=== PATIENT | female | born 1945 | race Caucasian/White ===

== ENCOUNTER → 2017-07-12 | Outpatient (CLI) | payer MEDICARE ==
--- NOTE | 2017-07-12 13:15 | RADIOLOGY REPORT (SQ) ---
EXAM DESCRIPTION: KNEE RIGHT 3 VIEWS COMPLETED DATE/TIME: 07/12/2017 10:29 am REASON FOR STUDY: PAIN IN RIGHT KNEE (M25.561) M25.561 PAIN IN RIGHT KNEE COMPARISON: 05/07/2008 NUMBER OF VIEWS: Three views. TECHNIQUE: AP, lateral, and sunrise patella radiographic images acquired of the right knee. LIMITATIONS: None. FINDINGS: MINERALIZATION: Normal. BONES: No acute fracture or dislocation. No worrisome bone lesions. No significant osteophytes. JOINT: No effusion. Mild degenerative narrowing of the patellofemoral joint. Stable mild degenerati ve compromise medial joint compartment. OTHER: No other significant finding. IMPRESSION: Mild degenerative compromise of the medial joint compartment unchanged since the previou s study. Mild degenerative narrowing of the patellofemoral joint. TECHNICAL DOCUMENTATION: JOB ID: [id number] [employer]- All Rights Reserved
== END ==
LOC: RAD 09:52
PROVIDERS: ATTEND Pain Medicine Interventional Pain Medicine
DX: M25.561 Pain in right knee (principal); M17.11 Unilateral primary osteoarthritis, right knee

== ENCOUNTER → 2017-10-13 | Outpatient (CLI) | payer MEDICARE ==
--- NOTE | 2017-10-13 13:04 | RADIOLOGY REPORT (SQ) ---
EXAM DESCRIPTION: KNEE RIGHT 3 VIEWS COMPLETED DATE/TIME: 10/13/2017 10:23 am REASON FOR STUDY: PAIN IN RIGHT KNEE AFTER FALL (M25.561) M25.561 PAIN IN RIGHT KNEE COMPARISON: None. NUMBER OF VIEWS: Three views. TECHNIQUE: AP, lateral, and sunrise patella radiographic images acquired of the right knee. LIMITATIONS: None. FINDINGS: MINERALIZATION: Normal. BONES: No acute fracture or dislocation. No worrisome bone lesions. JOINT: There is a tiny posterosuperior patellar spur. SOFT TISSUES: No soft tissue swelling. No radio-opaque foreign body. OTHER: No other significant finding. IMPRESSION: Minimal patellofemoral degenerative joint changes. No acute abnormality. TECHNICAL DOCUMENTATION: JOB ID: [id number] [employer]- All Rights Reserved Reading location - IP/workstation name: [email or web address]
== END ==
LOC: RAD 09:51
PROVIDERS: ATTEND Physician Assistant
DX: M25.561 Pain in right knee (principal)

== ENCOUNTER → 2017-12-06 | Outpatient (CLI) | payer MEDICARE ==
--- NOTE | 2017-12-06 17:28 | RADIOLOGY REPORT (SQ) ---
EXAM DESCRIPTION: MRI LUMBAR SPINE WITHOUT COMPLETED DATE/TIME: 12/06/2017 5:02 pm REASON FOR STUDY: SPINAL STENOSIS;SCOLIOSIS M48.00 SPINAL STENOSIS, SITE UNSPECIFIED M41.9 SCOLIOS IS, UNSPECIFIED COMPARISON: 2012. TECHNIQUE: Sagittal and Axial imaging includes T1, T2, STIR and gradient echo sequences. Coronal T2/ HASTE imaging. LIMITATIONS: None. FINDINGS: VISUALIZED UPPER ABDOMEN: Limited evaluation. No acute or suspicious findings suggested. SEGMENTATION: No transitional anatomy. The lowest well-developed disc space is labeled L5-S1. ALIGNMENT: Convex left scoliotic curve. Mild grade 1 listhesis at L4-5 and possibly L5-S1. VERTEBRAE: Intact. BONE MARROW: Normal in the lumbar spine. DISC SIGNAL: Diminished disc signal and height, most notable at L2-3. POSTERIOR ELEMENTS: Lower lumbar postoperative changes. Facet arthropathy with associated degenerat ashlee overgrowth particularly at L3-4. HARDWARE: Dorsal rods and screws span L4-5. CORD AND CONUS: Normal in size and signal intensity. Conus at the appropriate level. SOFT TISSUES: No aortic aneurysm seen. No bulky retroperitoneal adenopathy or mass. No paraspinal mas s or fluid. L1-L2: No significant spinal stenosis or exit foraminal stenosis. L2-L3: Mild disc and facet disease. Mild central and foraminal encroachment. L3-L4: Disc height loss with central to right paracentral focal disc hernia. This appears to extend laterally on the right. There is exuberant posterior element overgrowth. Marked central stenosis. Marked right foraminal stenosis. Moderate left foraminal narrowing. L4-L5: Operative level. No gross stenosis. L5-S1: No gross stenosis. LOWER THORACIC: Incompletely imaged. No stenosis seen. SACRUM: Abnormal signal along the left SI joint. This includes what appears to be mild edema. This may simply relate to asymmetric arthropathy, however unilateral sacral fracture is in the differentia l. This area is incompletely assessed. Further sacral MR imaging can be performed if warranted. Co rrelation would also need to be performed with SI joint radiographs. OTHER: No other significant findings. IMPRESSION: 1. Lumbar spondylosis and postoperative changes. Spinal stenosis at L3-4 is probably pr ogressive over the past 5 years, marked. 2. Left SI joint region pathology as above. Unclear if the re is fracture or simply arthropathy here. Further correlation with radiographs and sacral MRI may b e warranted. TECHNICAL DOCUMENTATION: JOB ID: [id number] [facility]- All Rights Reserved Reading location - IP/workstation name: [email or web address]
--- NOTE | 2017-12-07 09:30 | RADIOLOGY REPORT (SQ) ---
EXAM DESCRIPTION: MRI CERVICAL SPINE WITHOUT COMPLETED DATE/TIME: 12/06/2017 5:02 pm REASON FOR STUDY: SPINAL STENOSIS;SCOLIOSIS M48.00 SPINAL STENOSIS, SITE UNSPECIFIED M41.9 SCOLIOS IS, UNSPECIFIED COMPARISON: 2016 radiographs. TECHNIQUE: Sagittal and Axial imaging includes T1, T2, STIR and gradient echo sequences. LIMITATIONS: Limiting postoperative artifact. Some of the sequences are limited by motion. FINDINGS: ALIGNMENT: Grossly normal. BONE MARROW: Limiting motion artifact. Mild endplate related edema at the disc levels immediately ab ove and below surgery. DISCS: Obscured C4-5, C5-6 discs. At C3-4 and C6-7 discs also partially obscured by postoperative ar tifact. HARDWARE: Anterior fusion spanning C4 through C6. CORD AND BASE OF BRAIN: Motion limits assessment. Cord signal looks relatively normal. Skull base u nremarkable as visualized. SOFT TISSUES: No soft tissue masses. C1-C2: No significant spinal stenosis. C2-C3: No significant spinal stenosis or exit foraminal stenosis. C3-C4: Disc osteophyte complex appears to mildly flatten the cord. At least moderate right foraminal stenosis. Suspect marked left foraminal narrowing. C4-C5: Marked left foraminal stenosis. C5-C6: At least moderate foraminal stenosis. C6-C7: Bilateral foraminal stenosis. Mild central narrowing. C7-T1: No significant spinal stenosis or exit foraminal stenosis. UPPER THORACIC: Incompletely imaged. No significant spinal stenosis or exit foraminal stenosis. OTHER: No other significant finding. IMPRESSION: 1. Limited study due to motion and postoperative artifact. 2. Mild cord impingement is suggested at C3-4, the level above spinal surgery. TECHNICAL DOCUMENTATION: JOB ID: [id number] [employer]- All Rights Reserved Reading location - IP/workstation name: [email or web address]
== END ==
LOC: RAD 14:57
PROVIDERS: ATTEND Student in an Organized Health Care Education/Training Program
DX: M48.00 Spinal stenosis, site unspecified (principal); M41.9 Scoliosis, unspecified; R53.1 Weakness
CPT/HCPCS: 72141; 72148

== ENCOUNTER → 2018-01-10 | Outpatient (CLI) | payer MEDICARE ==
--- NOTE | 2018-01-10 11:32 | RADIOLOGY REPORT (SQ) ---
EXAM DESCRIPTION: MRI PELVIS WITHOUT COMPLETED DATE/TIME: 01/10/2018 10:10 am REASON FOR STUDY: ABN MRI COMPARISON: MRI lumbar spine 11/26/2017, 01/24/2013 MRI bony pelvis 08/18/2009, 05/19/2009 CT pelvis 05/07/2009 TECHNIQUE: Multiplanar multisequence imaging performed without contrast including axial, sagittal an d coronal T2, axial T1, sagittal inversion recovery. LIMITATIONS: None. FINDINGS: BLADDER AND URETHRA: Not entirely included in the field of view. Visualized bladder unrem arkable. PELVIC SOFT TISSUES: Post hysterectomy. No free pelvic fluid. No adenopathy FREE FLUID: None. PELVIC SKELETAL STRUCTURES: An old healed right sacral insufficiency fracture is present. This was a cute in 2009. Old bone harvest defect in the posterior right iliac crest related to a remote prior l umbar fusion. At the right SI joint inferiorly, there is joint space narrowing and bony spurring with adjacent reac tive marrow edema best shown on coronal image 15. On the left side, there is a band of bone marrow edema along the left sacral ala just medial to the S I joint worrisome for an acute or subacute nondisplaced sacral insufficiency fracture. This is best shown on coronal images 8 through 12 and axial images 8-12. At the left SI joint, there is fluid in the joint space with dense bony sclerosis of the adjacent sac rum and innominate bone likely reflecting chronic osteoarthritis. Lower lumbar fusion hardware. Bulky facet hypertrophy left greater than right at L5-S1. Mild bilate ral foraminal narrowing at L5-S1. EXTRA PELVIS SOFT TISSUES: No masses. OTHER: No other significant finding. IMPRESSION: Left acute or subacute nondisplaced sacral insufficiency fracture Arthritis at both SI joints TECHNICAL DOCUMENTATION: JOB ID: [id number] [employer]- All Rights Reserved Reading location - IP/workstation name: [email or web address]
== END ==
LOC: RAD 09:44
PROVIDERS: ATTEND Student in an Organized Health Care Education/Training Program
DX: M48.00 Spinal stenosis, site unspecified (principal)
CPT/HCPCS: 72195

== ENCOUNTER 2018-02-28 08:00 | Day surgery (SDC) | payer MEDICARE ==
[2018-02-28 09:00] LABS: INTERNATIONAL RATION (INR) 0.96; PROTHROMBIN TIME 13.3 SEC (11.4-15.4)
[2018-02-28 09:01] LABS: PARTIAL THROMBOPLASTIN TIME 27.2 SEC (23.5-35.8)
--- NOTE | 2018-02-28 12:57 | RADIOLOGY REPORT (SQ) ---
EXAM DESCRIPTION: CT CERVICAL SPINE WITH COMPLETED DATE/TIME: 02/28/2018 11:21 am REASON FOR STUDY: LUMBAGO, CERVICALGIA M54.2 CERVICALGIA Z79.01 [facility] (CURRENT) USE OF ANTICOA GULANTS COMPARISON: None. TECHNIQUE: After performing cervical myelogram, axial images were acquired through the cervical spin e without intravenous contrast. Images reviewed with lung, soft tissue and bone windows. Reconstruc gurpreet coronal and sagittal MPR images reviewed. Images stored on PACS. All CT scanners at this facility use dose modulation, iterative reconstruction, and/or weight based d osing when appropriate to reduce radiation dose to as low as reasonably achievable (ALARA). [facility]: Dose Right [facility]: CareDose [facility]: Dose Right [facility]: Teradose 4D [facility]: Smart [place] 100e RADIATION DOSE: CT Rad equipment meets quality standard of care and radiation dose reduction techniq ues were employed. CTDIvol: 23.5 mGy. DLP: 538 mGy-cm. mGy. LIMITATIONS: None. FINDINGS: ALIGNMENT: Anatomic. MINERALIZATION: Normal. VERTEBRAL BODIES: No fractures or dislocation. Anterior fusion with hardware at C4-C5 and C5-C6. DISCS: C1-C2: No significant spinal stenosis or exit foraminal stenosis. C2-C3: No significant spinal stenosis or exit foraminal stenosis. C3-C4: Disc space narrowing with prominent anterior and posterior osteophytes. This results in spina l stenosis, particularly on the left side of the spinal canal with impingement of the cervical cord. There is also uncovertebral spurring and facet arthropathy with left exit foraminal stenosis. C4-C5: No significant spinal stenosis. Mild bilateral exit foraminal stenosis. C5-C6: No significant spinal stenosis. Bilateral exit foraminal stenosis with severe right exit fora hubert stenosis. C6-C7: Mild posterior disc and osteophyte with mild spinal stenosis. C7-T1: No significant spinal stenosis or exit foraminal stenosis. FACETS, LATERAL MASSES, POSTERIOR ELEMENTS: No fractures. No dislocation. No acute findings. VISUALIZED RIBS: No fractures. LUNG APICES AND SOFT TISSUES: No significant or acute findings. OTHER: No other significant finding. IMPRESSION: 1. PROMINENT ANTERIOR AND POSTERIOR OSTEOPHYTES AT C3-C4 WITH LEFT-SIDED SPINAL STENOSIS AND IMPINGEM ENT OF THE CERVICAL CORD. THERE IS ALSO LEFT EXIT FORAMINAL STENOSIS. 2. ANTERIOR FUSION AT C4-C5 AND C5-C6. THERE IS NO SIGNIFICANT SPINAL STENOSIS AT THESE LEVELS. THE RE IS EXIT FORAMINAL STENOSIS WITH MOST PRONOUNCED FINDING ON THE RIGHT SIDE AT C5-C6 WITH SEVERE RIG HT EXIT FORAMINAL STENOSIS. 3. MILD POSTERIOR DISC AND OSTEOPHYTE AT C6-C7 WITH MILD SPINAL STENOSIS. COMMENT: Patient medication list reviewed: Yes- Quality ID# [id number]:Eligible professional attests to doc umenting in the medical record they obtained, updated, or reviewed the patient's current medications. TECHNICAL DOCUMENTATION: JOB ID: [id number] Quality ID # [id number]: Final reports with documentation of one or more dose reduction techniques (e.g., Au tomated exposure control, adjustment of the mA and/or kV according to patient size, use of iterative reconstruction technique) 2010 [employer]- All Rights Reserved Reading location - IP/workstation name: [email or web address]
--- NOTE | 2018-02-28 13:05 | RADIOLOGY REPORT (SQ) ---
EXAM DESCRIPTION: CT LUMBAR SPINE WITH COMPLETED DATE/TIME: 02/28/2018 11:21 am REASON FOR STUDY: LUMBAGO, CERVICALGIA M54.2 CERVICALGIA Z79.01 [employer] (CURRENT) USE OF ANTICOA GULANTS COMPARISON: None. TECHNIQUE: After performing lumbar myelogram, axial images were acquired through the lumbar spine wi thout intravenous contrast. Images reviewed with lung, soft tissue and bone windows. Reconstructed coronal and sagittal MPR images reviewed. All images stored on PACS. All CT scanners at this facility use dose modulation, iterative reconstruction, and/or weight based d osing when appropriate to reduce radiation dose to as low as reasonably achievable (ALARA). [facility]: Dose Right [facility]: CareDose [facility]: Dose Right [facility]: Teradose 4D [facility]: Cardiio RADIATION DOSE: CT Rad equipment meets quality standard of care and radiation dose reduction techniq ues were employed. CTDIvol: 30.0 mGy. DLP: 897 mGy-cm. mGy. LIMITATIONS: None. FINDINGS: SEGMENTATION: Normal. No transitional anatomy. ALIGNMENT: Normal. VERTEBRAL BODIES: No fractures. No dislocation. No acute findings. HARDWARE: Posterior hardware at L4 and L5. DISCS: L1-L2: No significant protrusions. No significant stenosis. L2-L3: Mild diffuse posterior annular disc bulge. Moderate facet arthropathy with vacuum in the join ts. Mild spinal stenosis. L3-L4: Vacuum change in the disc. Diffuse posterior disc bulge. Severe facet arthropathy. Severe s steve stenosis with almost complete obliteration of the contrast column in the thecal sac. L4-L5: No significant protrusions. Moderate to severe facet arthropathy. Previous laminectomy. No significant stenosis. L5-S1: No significant protrusions. Severe facet arthropathy. No significant stenosis. PEDICLES, TRANSVERSE PROCESSES: No fractures. No dislocation. No acute findings. FACETS, POSTERIOR ELEMENTS: No fractures. No dislocation. No spinal stenosis. VISUALIZED RIBS: No fractures. SOFT TISSUES: No significant or acute finding in adjacent soft tissues. OTHER: No other significant finding. IMPRESSION: 1. SURGICAL CHANGES AT L4-L5 WITH POSTERIOR HARDWARE. LAMINECTOMY CHANGES. SEVERE FACET ARTHROPATHY . NO SIGNIFICANT SPINAL STENOSIS AT THIS LEVEL. 2. DEGENERATIVE DISC DISEASE AND SEVERE FACET ARTHROPATHY AT L3-L 4. SEVERE SPINAL STENOSIS WITH DOMINGUEZ OST COMPLETE OBLITERATION OF THE CONTRAST COLUMN IN THE THECAL SAC. 3. THERE IS MODERATE FACET ARTHROPATHY AT L2-L3 WITH MILD DISC BULGE AND MILD SPINAL STENOSIS. SEVER E FACET ARTHROPATHY AT L5-S1 WITH NO SIGNIFICANT STENOSIS. COMMENT: Patient medication list reviewed: Yes- Quality ID# [id number]:Eligible professional attests to doc umenting in the medical record they obtained, updated, or reviewed the patient's current medications. TECHNICAL DOCUMENTATION: JOB ID: [id number] Quality ID # 436: Final reports with documentation of one or more dose reduction techniques (e.g., Au tomated exposure control, adjustment of the mA and/or kV according to patient size, use of iterative reconstruction technique) 2010 [email or web address]- All Rights Reserved Reading location - IP/workstation name: [email or web address]
--- NOTE | 2018-02-28 13:24 | RADIOLOGY REPORT (SQ) ---
EXAM DESCRIPTION: MYELOGRAM 2 OR MORE LEVELS COMPLETED DATE/TIME: 02/28/2018 11:19 am REASON FOR STUDY: LUMBAGO, CERVICALGIA M54.2 CERVICALGIA Z79.01 [employer] (CURRENT) USE OF ANTICOA GULANTS COMPARISON: None. FLUOROSCOPY TIME: 1 minutes 50 seconds. 19 images saved to PACS. TECHNIQUE: Fluoroscopic guided cervical and lumbar myelogram. LIMITATIONS: None. PROCEDURE: After written consent and assessment were obtained, the patient was brought into the fluo roscopy room and placed prone on the table. The patient's lower back was prepped in a sterile fashio n and an entry site was selected under live fluoroscopic guidance. The entry site was anesthetized wi th 1% lidocaine. The spinal needle was advanced through the skin and into the thecal sac at the leve l of L3-L4. Contrast was injected into the thecal sac. Following the procedure the needle was remov ed and a sterile bandage was placed of the site. CONTRAST: 10 mL Isovue-300. IMAGES ACQUIRED: 19 images of the cervical and lumbar spine. FINDINGS: Contrast is present in the thecal sac. On lateral images of the lumbar spine, there is anterior impression upon the thecal sac at L2-L3 and L3-L4. There is no significant change with flexion or extension imaging. IMPRESSION: LUMBAR MYELOGRAM PERFORMED WITH IMAGES OF BOTH THE LUMBAR AND CERVICAL SPINE AND FOLLOWU P CT IMAGING. PLEASE REFER TO THE REPORT OF THE CT MYELOGRAM FOR DETAILED DIAGNOSTIC EVALUATION. COMMENT: Patient medication list reviewed: Yes- Quality ID# [id number]:Eligible professional attests to doc umenting in the medical record they obtained, updated, or reviewed the patient's current medications. . Quality ID 145: Final reports for procedures using fluoroscopy that document radiation exposure alan gracia, or exposure time and number of fluorographic images (if radiation exposure indices are not avail able) TECHNICAL DOCUMENTATION: JOB ID: [id number] [employer]- All Rights Reserved Reading location - IP/workstation name: [email or web address]
[2018-02-28 13:43] VITALS: BP 115/68
== END 2018-02-28 13:30 | disposition home or self-care (01) ==
LOC: RAD 08:00
PROVIDERS: ATTEND Orthopaedic Surgery
DX: M54.2 Cervicalgia (principal); M54.5 Low back pain; M53.3 Sacrococcygeal disorders, not elsewhere classified; J44.9 Chronic obstructive pulmonary disease, unspecified; I10 Essential (primary) hypertension; K21.9 Gastro-esophageal reflux disease without esophagitis; E66.01 Morbid (severe) obesity due to excess calories; G47.33 Obstructive sleep apnea (adult) (pediatric); K44.9 Diaphragmatic hernia without obstruction or gangrene; M10.9 Gout, unspecified; G89.4 Chronic pain syndrome; M47.9 Spondylosis, unspecified; M19.90 Unspecified osteoarthritis, unspecified site; M41.9 Scoliosis, unspecified; M79.7 Fibromyalgia; M54.30 Sciatica, unspecified side; Z79.82 Long term (current) use of aspirin; Z79.84 Long term (current) use of oral hypoglycemic drugs; Z68.36 Body mass index [BMI] 36.0-36.9, adult; Z01.818 Encounter for other preprocedural examination
CPT/HCPCS: 36415; 72126; 72132; 72270; 85610; 85730

== ENCOUNTER → 2018-04-20 | Outpatient (CLI) | payer MEDICARE ==
--- NOTE | 2018-04-20 13:55 | RADIOLOGY REPORT (SQ) ---
EXAM DESCRIPTION: CT RT LOWER EXTREMITY WITHOUT COMPLETED DATE/TIME: 04/20/2018 1:22 pm REASON FOR STUDY: M25.551 PAIN IN RIGHT HIP M25.551 PAIN IN RIGHT HIP COMPARISON: None. TECHNIQUE: Axial imaging performed through the right hip with reformatted coronal and sagittal imagi ng windowed for bone and soft tissues. Images saved to PACS. 3D IMAGING: Were 3D images as MIP, SSD, or volume rendering performed at the work station? No. All CT scanners at this facility use dose modulation, iterative reconstruction, and/or weight based d osing when appropriate to reduce radiation dose to as low as reasonably achievable (ALARA). [facility]: Dose Right [facility]: CareDose [facility]: Dose Right [facility]: Teradose 4D [facility]: [place] LIMITATIONS: None. RADIATION DOSE: CT Rad equipment meets quality standard of care and radiation dose reduction techniq ues were employed. CTDIvol: 16.8 mGy. DLP: 524 mGy-cm. mGy. FINDINGS: SOFT TISSUES: No obvious swelling or foreign body. BONES: Very subtle linear radiolucency and cortical irregularity involving the anterior superior corn er of the acetabulum. Difficult to visualize but best demonstrated on axial series 2 images 49-50, s agittal series 300 images 53-57, and coronal series 301 images 24 and 25. MINERALIZATION: Normal. OTHER: No other significant finding. IMPRESSION: SUSPECT SUBTLE NONDISPLACED FRACTURE INVOLVING THE ANTERIOR SUPERIOR CORNER OF THE ACETA BULUM. TECHNICAL DOCUMENTATION: JOB ID: [id number] Quality ID # 436: Final reports with documentation of one or more dose reduction techniques (e.g., Au tomated exposure control, adjustment of the mA and/or kV according to patient size, use of iterative reconstruction technique) 2010 [employer]- All Rights Reserved Reading location - IP/workstation name: [email or web address]
== END ==
LOC: RAD 14:08
PROVIDERS: ATTEND Orthopaedic Surgery
DX: M25.551 Pain in right hip (principal)

== ENCOUNTER → 2018-10-23 | Outpatient (CLI) | payer MEDICARE ==
--- NOTE | 2018-10-23 12:47 | WOMENS IMAGING REPORT ---
EXAM DESCRIPTION: 3D SCREENING MAMMO BILAT COMPLETED DATE/TIME: 10/23/2018 10:46 am REASON FOR STUDY: Z12.31 ROUTINE 3D BILATERAL SCREENING Z12.31 ENCNTR SCREEN MAMMOGRAM FOR MALIGNAN T NEOPLASM OF BISHOP COMPARISON: 2008, 2013, 2014 EXAM PARAMETERS: Views: Standard craniocaudal and mediolateral oblique views of each breast recorded using digital acquisition and breast tomosynthesis. Read with the assistance of CAD. .[facility] - [employer] Administrator Version 9.2 LIMITATIONS: None. FINDINGS: No suspicious masses, suspicious calcifications or architectural distortion. No areas of c oncern. IMPRESSION: Assessment: Negative MAMMOGRAM. BIRADS 1. BREAST DENSITY: b. There are scattered areas of fibroglandular density. BIRAD: 1 NEGATIVE RECOMMENDATION: ROUTINE SCREENING COMMENT: The patient has been notified of the results by letter per MQSA requirements. Additional no tification policies are in place for contacting patient with suspicious or incomplete findings. Quality ID #225: The [employer] recommends an annual screening mammogram for women aged 40 years or over. This facility utilizes a reminder system to ensure that all patients receive reminder letters, and/or direct phone calls for appointments. This includes reminders for routine scr eening mammograms, diagnostic mammograms, or other Breast Imaging Interventions when appropriate. Th is patient will be placed in the appropriate reminder system. TECHNICAL DOCUMENTATION: FINDING NUMBER: (1) ASSESSMENT: (1) JOB ID: [id number] [employer]- All Rights Reserved Reading location - IP/workstation name: [email or web address]
== END ==
LOC: WI 10:26
PROVIDERS: ATTEND Student in an Organized Health Care Education/Training Program
DX: Z12.31 Encounter for screening mammogram for malignant neoplasm of breast (principal)
CPT/HCPCS: 77063; 77067

== ENCOUNTER → 2018-12-29 | Outpatient (CLI) | payer MEDICARE ==
--- NOTE | 2018-12-29 11:07 | WOMENS IMAGING REPORT ---
EXAM DESCRIPTION: U/S ABDOMEN LIMITED COMPLETED DATE/TIME: 12/29/2018 10:30 am REASON FOR STUDY: K76.0 FATTY (CHANGE OF) LIVER, NOT ELSEWHERE CLASSIFIED K76.0 FATTY (CHANGE OF) L IVER, NOT ELSEWHERE CLASSIFIED M81.8 OTHER OSTEOPOROSIS WITHOUT CURRENT PATHOLOGICAL FRACTU COMPARISON: 04/27/2016 TECHNIQUE: Dynamic and static grayscale images acquired of the abdomen and recorded on PACS. Additio nal selected color Doppler and spectral images recorded. LIMITATIONS: Limited visualization of some structures. . FINDINGS: PANCREAS: Limited visualization. LIVER: No focal lesions. No intrahepatic ductal dilation. Increased echogenicity. LIVER VASCULATURE: Normal directional flow of the main portal vein and hepatic veins. GALLBLADDER: No stones. Normal wall thickness. No pericholecystic fluid. ULTRASOUND-DETECTED MIRANDA'S SIGN: Negative. INTRAHEPATIC DUCTS AND COMMON DUCT: CBD and intrahepatic ducts normal caliber. No filling defects. INFERIOR VENA CAVA: Normal flow. AORTA: Limited visualization. RIGHT KIDNEY: Normal size measuring 9.9 cm. . Normal echogenicity. No solid or suspicious masses. N o hydronephrosis. No calcifications. PERITONEAL AND RIGHT PLEURAL SPACE: No ascites or effusions. OTHER: No other significant findings. IMPRESSION: Hepatic steatosis. Otherwise, unremarkable right upper quadrant ultrasound. TECHNICAL DOCUMENTATION: JOB ID: [id number] [employer]- All Rights Reserved Reading location - IP/workstation name: [email or web address]
--- NOTE | 2018-12-29 14:28 | WOMENS IMAGING REPORT ---
EXAM DESCRIPTION: BONE DENSITY HIP/SPINE COMPLETED DATE/TIME: 12/29/2018 10:38 am REASON FOR STUDY: M81.8 OTHER OSTEOPOROSIS WITHOUT CURRENT PATHOLOGICAL FRACTURE K76.0 FATTY (ZURITA E OF) LIVER, NOT ELSEWHERE CLASSIFIED M81.8 OTHER OSTEOPOROSIS WITHOUT CURRENT PATHOLOGICAL FRACTU COMPARISON: 06/06/2015 09/04/2012 05/15/2009 TECHNIQUE: Dual-Energy X-ray Absorptiometry (DEXA) of the AP Spine, Hip, and Forearm. LIMITATIONS: None. FINDINGS: HIP: The bone mineral density (BMD) measured in the left hip correlates with a T-score of -1.9 in the femo ral neck, which is osteopenia as defined by the World Health Organization. BMD Change vs Baseline: +2.7% FOREARM: The bone mineral density (BMD) measured in the left forearm correlates with a T-score of -1.6 which i s osteopenia as defined by the World Health Organization. BMD Change vs Baseline: -10.5% 10 year Fracture Risk Assessment: Major Osteoporotic Fracture: Not available. Hip Fracture: Not available. IMPRESSION: 1. HIP WHO CLASSIFICATION: Osteopenia 2. FOREARM WHO CLASSIFICATION: Osteopenia OVERALL ASSESSMENT: WHO CLASSIFICATION: Osteopenia COMMENT: The World Health Organization defines low BMD as follows: T-score: Normal: Greater than -1.0 Osteopenia: Between -1.0 and -2.5 Osteoporosis: Less than -2.5 without fractures Established osteoporosis: Less than -2.5 with fractures In general, you may wish to consider: Diagnosis Treatment Follow-up DEXA Normal BMD Prevention 2-3 years Osteopenia Prevention/Therapy 1-2 years Osteoporosis Therapy Yearly TECHNICAL DOCUMENTATION: JOB ID: [id number] [employer]- All Rights Reserved Reading location - IP/workstation name: [email or web address]
== END ==
LOC: WI 10:00
PROVIDERS: ATTEND Student in an Organized Health Care Education/Training Program
DX: K76.0 Fatty (change of) liver, not elsewhere classified (principal); M81.8 Other osteoporosis without current pathological fracture
CPT/HCPCS: 76705; 77080

== ENCOUNTER 2019-02-15 10:02 | Emergency (ER) | payer MEDICARE ==
--- NOTE | 2019-02-15 11:36 | ER Document Report ---
ED General - General Chief Complaint: Fall Injury Stated Complaint: FALL Time Seen by Provider: 02/15/19 11:08 Primary Care Provider: ARMANDO MCCULLOUGH DO [Primary Care Provider] - Follow up as needed Mode of Arrival: Ambulatory Information source: Patient TRAVEL OUTSIDE OF THE [place] IN LAST 30 DAYS: No - HPI Notes: 73-year-old female presents to the ED with complaints of falling 5 times in 1 day accidentally 1 week ago. Patient does ambulate around on a walker. Patient reports she has these days where she wakes up and feels "weird and falls a lot that day" and then there are days where she ambulates around without any issues. Patient cannot say distinctively if she lost consciousness, when she fell she was alone. Reports she has left elbow pain, left lower leg pain and left rib pain from fall, did try to see her primary care which is violent, they advised her to go to the emergency room. Denies any new medications foods or travel. Her primary care did have her going to physical therapy for falls however patient has not been going due to "family obligations". denies fevers, chills, chest pain,palpitations, shortness of breath, dyspnea, nausea, vomiting, diarrhea, abdominal pain, hematuria,blurred vision, double vision, loss of vision, speech changes, LH, dizziness, syncope, headaches, wheezing, ST, URI, neck pain, weakness, bowel or bladder dysfunction, saddle anesthesia, numbness or tingling in bilateral upper or lower extremities equally, muscle paralysis, weakness in bilateral upper or lower extremities equally or rash. - Related Data Allergies/Adverse Reactions: No Known Allergies Allergy (Verified 02/28/18 08:11) Past Medical History - General Information source: Patient - Social History Smoking Status: Never Smoker Chew tobacco use (# tins/day): No Frequency of alcohol use: None Drug Abuse: None Family History: Reviewed & Not Pertinent Patient has suicidal ideation: No Patient has homicidal ideation: No - Past Medical History Cardiac Medical History: Reports: Hx Coronary Artery Disease, Hx Hypertension Denies: Hx Heart Attack Pulmonary Medical History: Denies: Hx Asthma, Hx Bronchitis, Hx COPD, Hx Pneumonia Neurological Medical History: Denies: Hx Cerebrovascular Accident, Hx Seizures GI Medical History: Reports: Hx Hiatal Hernia. Denies: Hx Hepatitis, Hx Ulcer Musculoskeletal Medical History: Reports Hx Arthritis - GENERALIZED Infectious Medical History: Denies: Hx Hepatitis Past Surgical History: Reports: Hx Hysterectomy. Denies: Hx Mastectomy, Hx Open Heart Surgery, Hx Pacemaker - Immunizations Hx Diphtheria, Pertussis, Tetanus Vaccination: Yes Hx Pneumococcal Vaccination: 03/23/15 Review of Systems - Review of Systems Constitutional: No symptoms reported EENT: No symptoms reported Cardiovascular: No symptoms reported Respiratory: No symptoms reported Gastrointestinal: No symptoms reported Genitourinary: No symptoms reported Female Genitourinary: No symptoms reported Musculoskeletal: No symptoms reported Skin: No symptoms reported Hematologic/Lymphatic: No symptoms reported Neurological/Psychological: See HPI Physical Exam - Vital signs Vitals: Temp Pulse Resp BP Pulse Ox 97.9 F 76 20 115/101 H 95 02/15/19 10:06 02/15/19 10:06 02/15/19 10:06 02/15/19 10:06 02/15/19 10:06 - Notes Notes: PHYSICAL EXAMINATION: GENERAL: Well-appearing, well-nourished and in no acute distress. HEAD: Atraumatic, normocephalic. EYES: Pupils equal round and reactive to light, extraocular movements intact, conjunctiva are normal. ENT: Nares patent, oropharynx clear without exudates. Moist mucous membranes. NECK: Normal range of motion, supple without lymphadenopathy LUNGS: Breath sounds clear to auscultation bilaterally and equal. No wheezes rales or rhonchi. Tenderness on palpation to left eighth and ninth rib at the intercostal spaces HEART: Regular rate and rhythm without murmurs ABDOMEN: Soft, and redness to left upper quadrant on palpation, no ecchymosis noted. nondistended abdomen. No guarding, no rebound. No masses appreciated. Female : deferred Musculoskeletal: Normal range of motion, no pitting or edema. No cyanosis. Ten derness to right elbow with supination only, director wholesale + bilateral upper extremities, strength 5 out of 5 bilateral lower extremities equally. left tibtal pain on latateral aspect, distal to knee approx 10 cm. negative joey's sign. Dtr + 2 in BLE. Full motor and sensory function to BLE equally. scabbed wound approx [id number] to lateral apsect, no surrounding erythema. No induration or drainage. Strength 5 out of 5 bilaterally equally. Ankle examination normal. Squeeze test negative. Hip examination normal. Pulses + 2 bilaterally and equally.negative squeeze bilaterally and equally. NEUROLOGICAL: Cranial nerves grossly intact. Normal speech, normal gait. Normal sensory, motor exams. PERRLA, EOMI. Full motor and sensory function throughout. Population Health Coach + 2 equal bilaterally in BUE. Tongue midline. No pronator drift. No ataxia. Neck with APROM. Raises eyebrows. Strength is 5 out of 5 in b ilateral upper and lower extremities equally.Speaks in full sentences. No weakness on one side. Romberg gait steady able to walk straight line. Able to recall 5 objects. PSYCH: Normal mood, normal affect. SKIN: Warm, Dry, normal turgor, no rashes or lesions noted. Course - Re-evaluation Re-evalutation: 02/15/19 11:31 73-year female afebrile vital stable no distress. CBC negative for leukocytosis or anemia, CMP negative for hepatic or renal dysfunction, no electrolyte disturbances. EKG negative for acute STEMI, no ST segment changes, troponin negative, since patient fell approximately 5 days ago, complaining of any chest pain or shortness of breath. CT of head was negative for any acute findings, this was performed due to patient having episodes of falling 1 week ago, has not fallen since that time. CT abdomen pelvis negative for any acute findings, x- ray of left elbow, left tibia, left rib all negative. Follow-up with route specialist and primary care provider in the next 24 to 48 hours. Patient came for evaluation from falling, all of her diagnostic and laboratory findings were negative. urinalysis is negative. After performing a Medical Screening Examination, I estimate there is LOW risk for ACUTE GLAUCOMA, TEMPORAL ARTERITIS, MENINGITIS, INCRANIAL HEMORRHAGE, or ISCHEMIC STROKE thus I consider the discharge disposition reasonable. I have reevaluated this patient multiple times and no significant life threatening changes are noted. The patient and I have discussed the diagnosis and risks, and we agree with discharging home with close follow-up with the understanding that symptoms and presentations can change. We also discussed returning to the Emergency Department immediately if new or worsening symptoms occur. We have discussed the symptoms which are most concerning (e.g., changing or worsening symptoms, new numbness or weakness, vomiting, fever) that necessitate immediate return. 02/15/19 17:00 - Vital Signs Vital signs: Temp Pulse Resp BP Pulse Ox 97.9 F 76 24 H 95/67 L 98 02/15/19 10:06 02/15/19 10:06 02/15/19 13:42 02/15/19 13:42 02/15/19 13:42 - Laboratory Result Diagrams: 02/15/19 12:08 02/15/19 12:08 Laboratory results interpreted by me: 02/15/19 12:08 Anion Gap 1 L Discharge - Discharge Clinical Impression: Strain of left elbow, Pain in left tibia, Intermittent left upper quadrant abdominal pain, Contusion of rib on left side Condition: Stable Disposition: HOME, SELF-CARE Instructions: Abdominal Pain ([facility]), Rib Contusion ([facility]), Tennis Elbow (Lateral Epicondylitis) ([facility]), Sprain ([facility]), Ice & Elevation ([facility]) Additional Instructions: all of your xrays were normal and CT of head/abdomen pelvis were normal. Since her fall was over 1 week ago, states he stated that there are no fractures, your cardiac testing was negative, all of your lab work is normal. follow up with your route specialist and your primary care provider within 24-48 hours. Return immediately for any new or worsening symptoms. Follow up with primary care provider, call tomorrow to make followup appointment. Prescriptions: Naproxen 500 mg PO BID #10 tablet Referrals: ARMANDO MCCULLOUGH DO [Primary Care Provider] - Follow up tomorrow RAJ MILLER MD [ACTIVE PROVISIONAL STAFF] - Follow up as needed
[2019-02-15 12:20] LABS: ABSOLUTE EOSINOPHILS # (AUTO) 0.3 10^3/uL (0.0-0.6); ABSOLUTE LYMPHOCYTES (AUTO) 1.4 10^3/uL (0.5-4.7); ABSOLUTE MONOCYTES (AUTO) 0.9 10^3/uL (0.1-1.4); ABSOLUTE NEUT (AUTO) 7.1 10^3/uL (1.7-8.2); BASOPHILS % (AUTO) 0.2 % (0-2); EOSINOPHILS % (AUTO) 3.2 % (0-6); HEMATOCRIT 37.2 % (36.0-47.0); HEMOGLOBIN 12.5 g/dL (12.0-15.5); MEAN CORPUSCULAR HEMOGLOBIN 28.2 pg (27.0-33.4); MEAN CORPUSCULAR HGB CONC 33.5 g/dL (32.0-36.0); MEAN CORPUSCULAR VOLUME 84 fl (80-97); MONOCYTES % (AUTO) 9.3 % (3-13); PLATELET COUNT 346 10^3/uL (150-450); RED BLOOD COUNT 4.42 10^6/uL (3.72-5.28); SEGMENTED NEUTROPHILS % (AUTO) 73.3 % (42-78); TOTAL CELLS COUNTED % (AUTO) 100 %; WHITE BLOOD COUNT 9.7 10^3/uL (4.0-10.5)
[2019-02-15 12:37] LABS: ALKALINE PHOSPHATASE 112 U/L (38-126); ASPARTATE AMINO TRANSFERASE 34 U/L (14-36); BILIRUBIN,DIRECT 0.1 mg/dL (0.0-0.4); BILIRUBIN,TOTAL 0.4 mg/dL (0.2-1.3); BLOOD UREA NITROGEN 10 mg/dL (7-20); CALCIUM 9.3 mg/dL (8.4-10.2); CARBON DIOXIDE 30 mmol/L (22-30); CREATINE KINASE 105 U/L (30-135); GLUCOSE 76 mg/dL (75-110); POTASSIUM 4.5 mmol/L (3.6-5.0)
[2019-02-15 12:42] LABS: CHLORIDE 107 mmol/L (98-107)
[2019-02-15 12:45] LABS: ANION GAP 1 (5-19)
[2019-02-15 12:52] LABS: TROPONIN I < 0.012 ng/mL
--- NOTE | 2019-02-15 13:03 | RADIOLOGY REPORT (SQ) ---
EXAM DESCRIPTION: ELBOW LEFT AP/LATERAL; RIBS LEFT W/PA CHEST; TIBIA FIBULA LEFT COMPLETED DATE/TIME: 02/15/2019 12:52 pm REASON FOR STUDY: fall 5x 1 week ago, elbow/leg/rib pain, unsure loc COMPARISON: None. FINDINGS: Chest and left ribs: Three views. No pneumothorax. Minimal left subsegmental atelectasis . Site of rib complaint not indicated. No displaced fracture. Two views left tibia and fibula: 4 images total. Normal. Two views left elbow, AP and lateral: No displaced fracture evident. No significant joint effusion. TECHNICAL DOCUMENTATION: JOB ID: [id number] Reading location - IP/workstation name: [email or web address]
--- NOTE | 2019-02-15 13:03 | RADIOLOGY REPORT (SQ) ---
EXAM DESCRIPTION: ELBOW LEFT AP/LATERAL; RIBS LEFT W/PA CHEST; TIBIA FIBULA LEFT COMPLETED DATE/TIME: 02/15/2019 12:52 pm REASON FOR STUDY: fall 5x 1 week ago, elbow/leg/rib pain, unsure loc COMPARISON: None. FINDINGS: Chest and left ribs: Three views. No pneumothorax. Minimal left subsegmental atelectasis . Site of rib complaint not indicated. No displaced fracture. Two views left tibia and fibula: 4 images total. Normal. Two views left elbow, AP and lateral: No displaced fracture evident. No significant joint effusion. TECHNICAL DOCUMENTATION: JOB ID: [id number] Reading location - IP/workstation name: [email or web address]
--- NOTE | 2019-02-15 13:03 | RADIOLOGY REPORT (SQ) ---
EXAM DESCRIPTION: ELBOW LEFT AP/LATERAL; RIBS LEFT W/PA CHEST; TIBIA FIBULA LEFT COMPLETED DATE/TIME: 02/15/2019 12:52 pm REASON FOR STUDY: fall 5x 1 week ago, elbow/leg/rib pain, unsure loc COMPARISON: None. FINDINGS: Chest and left ribs: Three views. No pneumothorax. Minimal left subsegmental atelectasis . Site of rib complaint not indicated. No displaced fracture. Two views left tibia and fibula: 4 images total. Normal. Two views left elbow, AP and lateral: No displaced fracture evident. No significant joint effusion. TECHNICAL DOCUMENTATION: JOB ID: [id number] Reading location - IP/workstation name: [email or web address]
--- NOTE | 2019-02-15 13:14 | RADIOLOGY REPORT (SQ) ---
EXAM DESCRIPTION: CT HEAD WITHOUT COMPLETED DATE/TIME: 02/15/2019 1:04 pm REASON FOR STUDY: fall 5x 1 week ago, elbow/leg/rib pain, unsure loc COMPARISON: None. TECHNIQUE: Axial images acquired through the brain without intravenous contrast. Images reviewed wi th bone, brain and subdural windows. Additional sagittal and coronal reconstructions were generated. Images stored on PACS. All CT scanners at this facility use dose modulation, iterative reconstruction, and/or weight based d osing when appropriate to reduce radiation dose to as low as reasonably achievable (ALARA). [facility]: Dose Right [facility]: CareDose [facility]: Dose Right [facility]: Teradose 4D [facility]: Smart [facility] RADIATION DOSE: CT Rad equipment meets quality standard of care and radiation dose reduction techniq ues were employed. CTDIvol: 53.2 mGy. DLP: 1070 mGy-cm. mGy. LIMITATIONS: None. FINDINGS: VENTRICLES: Prominent. CEREBRUM: No masses. No hemorrhage. No midline shift. Areas of low density in the white matter mos t likely due to chronic micro-vascular ischemic change. No evidence for acute infarction. CEREBELLUM: No masses. No hemorrhage. No alteration of density. No evidence for acute infarction. EXTRAAXIAL SPACES: Mild age-related involutional change. No fluid collections. No masses. ORBITS AND GLOBE: No intra- or extraconal masses. Normal contour of globe without masses. CALVARIUM: No fracture. PARANASAL SINUSES: No fluid or mucosal thickening. SOFT TISSUES: No mass or hematoma. OTHER: No other significant finding. IMPRESSION: MILD CHRONIC CHANGES OF ATROPHY AND MICROVASCULAR ISCHEMIA. NO ACUTE PROCESS. EVIDENCE OF ACUTE STROKE: NO. TECHNICAL DOCUMENTATION: JOB ID: [id number] Quality ID # [id number]: Final reports with documentation of one or more dose reduction techniques (e.g., Au tomated exposure control, adjustment of the mA and/or kV according to patient size, use of iterative reconstruction technique) 2010 [employer]- All Rights Reserved Reading location - IP/workstation name: [email or web address]
--- NOTE | 2019-02-15 13:41 | RADIOLOGY REPORT (SQ) ---
EXAM DESCRIPTION: CT ABD/PELVIS WITH IV ONLY COMPLETED DATE/TIME: 02/15/2019 1:06 pm REASON FOR STUDY: fell on lap band, LUQ abd pain COMPARISON: None. TECHNIQUE: CT scan of the abdomen and pelvis performed using helical scanning technique with dynamic intravenous contrast injection. No oral contrast. Images reviewed with lung, soft tissue, and bone windows. Reconstructed coronal and sagittal MPR images reviewed. Delayed images for evaluation of the urinary system also acquired. All images stored on PACS. All CT scanners at this facility use dose modulation, iterative reconstruction, and/or weight based d osing when appropriate to reduce radiation dose to as low as reasonably achievable (ALARA). [facility]: Dose Right [facility]: CareDose [facility]: Dose Right [facility]: Teradose 4D [facility]: [place] CONTRAST TYPE AND DOSE: contrast/concentration: Isovue 350.00 mg/ml; Total Contrast Delivered: 97.0 ml; Total Saline Delivered: 24.0 ml RENAL FUNCTION: GFR > 60. RADIATION DOSE: CT Rad equipment meets quality standard of care and radiation dose reduction techniq ues were employed. CTDIvol: 9.6 - 14.4 mGy. DLP: 1290 mGy-cm.. LIMITATIONS: None. FINDINGS: LOWER CHEST: No significant findings. No nodules or infiltrates. LIVER: Normal size. No masses. No dilated ducts. SPLEEN: Normal size. No focal lesions. PANCREAS: No masses. No significant calcifications. No adjacent inflammation or peripancreatic fluid collections. Pancreatic duct not dilated. GALLBLADDER: No identified stones by CT criteria. No inflammatory changes to suggest cholecystitis. ADRENAL GLANDS: No significant masses or asymmetry. RIGHT KIDNEY AND URETER: No solid masses. No significant calcifications. No hydronephrosis or hyd roureter. LEFT KIDNEY AND URETER: No solid masses. No significant calcifications. No hydronephrosis or hydr oureter. AORTA AND VESSELS: No aneurysm. No dissection. Renal arteries, SMA, celiac without stenosis. RETROPERITONEUM: No retroperitoneal adenopathy, hemorrhage or masses. BOWEL AND PERITONEAL CAVITY: There is an adjustable lap band system with subcutaneous reservoir about the left upper quadrant. No masses or inflammatory changes. No free fluid or peritoneal masses. APPENDIX: Not visualized. PELVIS: No mass. Status post hysterectomy. No free fluid. Normal bladder. ABDOMINAL WALL: No masses. Small fat containing umbilical hernia. BONES: No significant or acute findings. OTHER: No other significant finding. IMPRESSION: 1. No CT evidence of acute traumatic injury to the abdomen or pelvis. 2. Adjustable lap band system with subcutaneous reservoir about the left upper quadrant. TECHNICAL DOCUMENTATION: JOB ID: [id number] Quality ID # [id number]: Final reports with documentation of one or more dose reduction techniques (e.g., Au tomated exposure control, adjustment of the mA and/or kV according to patient size, use of iterative reconstruction technique) 2010 [employer]- All Rights Reserved Reading location - IP/workstation name: [email or web address]
[2019-02-15 14:03] LABS: APPEARANCE,URINE CLEAR; BILIRUBIN,URINE NEGATIVE (NEGATIVE); COLOR,URINE YELLOW; GLUCOSE, URINE NEGATIVE (NEGATIVE); KETONES,URINE NEGATIVE (NEGATIVE); LEUKOCYTE ESTERASE,URINE NEGATIVE (NEGATIVE); NITRITE,URINE NEGATIVE (NEGATIVE); PROTEIN,URINE NEGATIVE (NEGATIVE); URINE SPECIFIC GRAVITY 1.047; UROBILINOGEN,URINE NEGATIVE mg/dL (<2.0)
[2019-02-15 15:02] VITALS: BP 119/71
--- NOTE | 2019-02-17 09:07 | EKG REPORT ---
SEVERITY:- BORDERLINE ECG - SINUS RHYTHM PROBABLE LEFT ATRIAL ABNORMALITY BORDERLINE INFERIOR Q WAVES : Confirmed by: Rosey Bone 17-Feb-2019 09:07:02
== END 2019-02-15 15:00 | disposition home or self-care (01) ==
LOC: ER 10:02
DX: S46.812A Strain of other muscles, fascia and tendons at shoulder and upper arm level, left arm, initial encounter (principal); S20.20XA Contusion of thorax, unspecified, initial encounter; M89.8X6 Other specified disorders of bone, lower leg; M25.522 Pain in left elbow; R07.81 Pleurodynia; W19.XXXA Unspecified fall, initial encounter; R29.6 Repeated falls; R10.12 Left upper quadrant pain; R10.812 Left upper quadrant abdominal tenderness; L53.9 Erythematous condition, unspecified; R23.4 Changes in skin texture; I25.10 Atherosclerotic heart disease of native coronary artery without angina pectoris; I10 Essential (primary) hypertension
CPT/HCPCS: 36415; 70450; 74177; 80053; 81001; 82550; 82553; 83690; 84484; 85025; 93005; 93010; 99284

== ENCOUNTER → 2019-10-10 | Outpatient (CLI) | payer MEDICARE | LOC: RAD 11:13 | PROVIDERS: ATTEND Pain Medicine Interventional Pain Medicine | DX: M96.1 Postlaminectomy syndrome, not elsewhere classified (principal) | CPT/HCPCS: 82565; 72158; A9576 ==

== ENCOUNTER → 2020-01-10 | Outpatient (CLI) | payer MEDICARE | LOC: WHI 13:00 | PROVIDERS: ATTEND Physician Assistant | DX: Z12.31 Encounter for screening mammogram for malignant neoplasm of breast (principal) | CPT/HCPCS: 77063; 77067 ==